=== PATIENT | female | born 1990 | race African-American/Black ===

== ENCOUNTER 2022-12-08 22:15 | Outpatient (CLI) | payer MEDICAID, SELFPAY ==
[2022-12-08] VITALS (14 sets, daily range): BP systolic 129; BP diastolic 80; PULSE 100–111; TEMP 37; O2SAT 91–100
[2022-12-08 23:00] LABS: Color, Urine Yellow (Yellow); Glucose, Dipstick Normal (Normal); Ketone-Dipstick Negative (Negative); Leukocyte Esterase-Dipstick Negative /ul (Negative); Nitrite-Dipstick Negative (Negative); Occult Blood-Urine 10 /ul (Negative); Protein-Dipstick Negative (Negative); Urine Bilirubin Dipstick Negative (Negative); Urine Clarity Clear (Clear); Urine Urobilinogen Normal (Normal)
[2022-12-08 23:21] LABS: ROM Internal Control Test YES-OK TO RESULT pt. (Internal QC); ROM Patient Test Negative (Negative); Record Kit Lot#, ROM+ K1374
[2022-12-08] MEDS: Lactated Ringers 1,000 ML 999 ML IV (23:40)
[2022-12-09] VITALS: PULSE 111; O2SAT 100
[2022-12-09 00:05] VITALS: PULSE 105; O2SAT 99
[2022-12-09 00:10] VITALS: PULSE 105; O2SAT 99
[2022-12-09 00:15] VITALS: PULSE 102; O2SAT 100
[2022-12-09 00:20] VITALS: PULSE 101; O2SAT 99
--- NOTE | 2022-12-12 15:04 | OB.TRI.NOTE ---
HPI - General General Date of Service: 12/08/22 HPI Narrative ALFREDITO FERREIRA, is a 32 F who presents with contractions PFSH PFSH Allergy/AdvReac Type Severity Reaction Status Date / Time azithromycin Allergy PT UNSURE Verified 12/08/22 22:43 OF REACTION NST FHR Rate Baby A Baseline: 150 Variability:: Moderate Accelerations:: 10 x 10 Decelerations:: None NST Reactive:: Yes Uterine Activity:: few contractions Assessment & Plan (1) : PLAN: Called by nursing patient arrives with contractions patient with care outside of [facility]. Notified by nursing signout of contractions given instruction for cervical exam and call back. Nursing called back with cervical exam noted to be no signs of labor via cervical exam. Nursing discussed triage scoring system for evaluation via physician offered my evaluation now versus repeat cervical exam in 2 hours myself, nursing states to have me check in 2 hours. Prior to the 2-hour duong patient now with resolved contractions feels no abdominal pain and no palpable contractions per nursing. Nursing states no need for further evaluation by me, given order for nursing to discharge home
== END 2022-12-09 00:55 | disposition home or self-care (01) ==
LOC: WPOUT 22:40 → WP 22:41
PROVIDERS: Visit Provider Obstetrics & Gynecology
DX: O47.9 False labor, unspecified (principal); Z3A.00 Weeks of gestation of pregnancy not specified
CPT/HCPCS: 59025; 59050; 81002; 84112; 99221; J7120; G0378

== ENCOUNTER 2022-12-17 21:03 | Emergency (ER) | payer MEDICAID, SELFPAY ==
[2022-12-17 21:04] VITALS: BP 123/82; PULSE 102; RESP 16; TEMP 36.6; O2SAT 99; BMI 31.1
--- NOTE | 2022-12-17 21:23 | EDS_ITS ---
HPI History of Present Illness Chief Complaint: Lower Extremity Injury Informant: patient Narrative Narrative: Patient presents with left knee pain. Patient was walking along the grass. She caught her toe on a small raised area. This caused her to trip. She reached out with the left leg and she felt a pop and sharp pain in her knee. She did not actually fall to the ground or impact the ground. She is able to bear weight but the knee is sore. Of note she is 6 months but is having no symptoms related to that. PFSH PFSH Medical History no medical history Allergy/AdvReac Type Severity Reaction Status Date / Time azithromycin Allergy PT UNSURE Verified 12/17/22 21:03 OF REACTION Family History no significant family his Social History Smoking Status: Light Smoker (<10/day) ROS ROS ED Constitutional Constitutional ED: Denies chills or fever(s) Cardiovascular Cardiovascular: Denies chest pain Respiratory/Chest Respiratory/Chest: Denies dyspnea Gastrointestinal Gastrointestinal: Denies abdominal pain, nausea or vomiting Genitourinary Genitourinary ED: Reports other Details: No bleeding cramping discharge or other complaints related to . ; Denies dysuria or hematuria Musculoskeletal Musculoskeletal: Reports arthralgias; Denies back pain, myalgias or neck pain Integumentary Denies Abrasions or rash Neurologic Neurologic: Denies paresthesias or weakness Hematologic/Lymphatic Hematologic/Lymphatic: Denies easy bruising EXAM Physical Exam Narrative Exam Narrative: Patient is a wake alert nontoxic pleasant and in good informant. HEENT shows no sign of trauma. Mucous membranes are moist. Neck is free range of motion Cardiorespiratory shows easy unlabored breathing and normal saturations at 99% on room air showing no hypoxia. Abdomen is gravid but nontender. Extremity no abrasions contusions. There is no swelling but she does have tenderness at the the patella as well as the lateral joint line. No effusion that I see. Her extensor mechanism is intact on exam. Knee is stable to varus valgus exam. 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 No tenderness to the other knee or either ankle. Skin shows no abrasions. Const Vital Signs: 12/17/22 21:04 Temperature 97.9 F Temperature Source Temporal Pulse Rate 102 H Respiratory Rate 16 Blood Pressure 123/82 H Blood Pressure Mean 95 Pulse Ox 99 MDM MDM MDM Narrative Medical decision making narrative: My independent interpretation the patient's three-view left knee x-ray shows no sign of acute fracture dislocation or fat fluid level. Final reading did make note of thickening of the distal quadriceps tendon that may represent injury. This finding on x-ray is consistent with pain. She has pain in the front of the knee and laterally. But it is stable. I think the Tylenol if needed is appropriate. Ice and rest. Radiography Diagnostic Testing: Clinical Impression(s) from Imaging Studies Knee X-Ray 12/17/22 21:30 IMPRESSION: Thickening of the distal quadriceps tendon may represent injury. No finding of fracture or dislocation. Electronically Signed: Chris Ritchie MD at 21:42 EDT , Discharge Plan Triage Chief Complaint: Lower Extremity Injury ED Provider: César Wolf Dx/Rx/DC Orders Clinical Impression: Strain of left knee, Strain of left quadriceps tendon, Third trimester Instructions: ED Knee Sprain Primary Care Provider: Care Physician,No Primary Referrals: Jose Martin Mix, [Med Staff - Active Staff] - 1 Week if not improving Care Physician,No Primary [Primary Care Provider] - Activity Restrictions/Additional Instructions: Use ice and rest. Disposition Disposition: Home, Self Care
--- NOTE | 2022-12-17 21:30 | RAD_ITS ---
INDICATION: Trauma -- Shield abdomen. Patient is approximately 6 months EXAMINATION/TECHNIQUE: X-RAY - LEFT XR Knee 3 Views 3 VIEWS COMPARISON: None FINDINGS: SOFT TISSUES: There is thickening of the distal quadriceps tendon. No soft tissue swelling or gas. No radiopaque foreign body. BONES/JOINTS: No acute fracture or subluxation. Medial, lateral, and patellofemoral compartment joint spaces are maintained. No sclerotic or destructive changes observed. RAD/Knee 3 Views IMPRESSION: Thickening of the distal quadriceps tendon may represent injury. No finding of fracture or dislocation. Electronically Signed: Chris Ritchie MD at 21:42 EDT ,
== END 2022-12-17 22:43 | disposition home or self-care (01) ==
PROVIDERS: Emergency Provider Emergency Medicine; Visit Provider Emergency Medicine
DX: O9A.213 Injury, poisoning and certain other consequences of external causes complicating pregnancy, third trimester (principal); S83.92XA Sprain of unspecified site of left knee, initial encounter; F17.200 Nicotine dependence, unspecified, uncomplicated; S76.112A Strain of left quadriceps muscle, fascia and tendon, initial encounter; O99.333 Smoking (tobacco) complicating pregnancy, third trimester; W01.10XA Fall on same level from slipping, tripping and stumbling with subsequent striking against unspecified object, initial encounter; Y93.01 Activity, walking, marching and hiking; Z3A.00 Weeks of gestation of pregnancy not specified
CPT/HCPCS: 73562; 99282

== ENCOUNTER 2022-12-30 13:35 | Outpatient (CLI) | payer MEDICAID, SELFPAY ==
[2022-12-30 13:44] VITALS: PULSE 103; O2SAT 98
[2022-12-30 13:46] VITALS: BP 112/64; PULSE 96
[2022-12-30 13:49] VITALS: BMI 29.8
[2022-12-30 13:58] VITALS: BP 112/64; PULSE 102; TEMP 36.8; O2SAT 97
[2022-12-30 14:38] LABS: Mucous, Urine 0 SEEN /hpf (<or=2+)
[2022-12-30 14:42] LABS: Color, Urine Yellow (Yellow); Glucose, Dipstick 250 mg/dl (Normal); Ketone-Dipstick 5 mg/dl (Negative); Leukocyte Esterase-Dipstick 100 /ul (Negative); Nitrite-Dipstick Negative (Negative); Occult Blood-Urine 25 /ul (Negative); Protein-Dipstick 30 mg/dl (Negative); Specific Gravity, Urine 1.025 (1.002-1.030); Urine Bilirubin Dipstick Negative (Negative); Urine Clarity Sl. Cloudy (Clear); Urine Urobilinogen 1 mg/dl (Normal)
[2022-12-30 14:49] LABS: Bacteria 2+ /hpf (None Seen); Red Blood Cells-Urine 0-5 SEEN /hpf (0-5); Squamous Epithelial Cells - UA 25-50 SEEN /hpf (5-10); White Blood Cells 0-5 SEEN /hpf (0-5)
[2022-12-30] MEDS: Lactated Ringers 1,000 ML 999 ML IV ×2 (14:49→16:00)
[2022-12-30] MEDS: Acetaminophen 500 MG Tablet 1000 MG PO (14:57)
[2022-12-30 15:00] LABS: Absolute Lymphocyte Count 1.68 X10^3/uL (0.83-4.51); Absolute Neutrophil Count 6.6 X10^3/uL (2.0-7.7); Basophil# 0.03 X10^3/uL; Basophil% 0.3 % (0-1); Eosinophil# 0.15 X10^3/uL; Eosinophils% 1.6 % (0-5); Hematocrit 31.3 % (37-47); Hemoglobin 10.4 g/dL (12.0-15.0); Lymphocyte # 1.68 X10^3/ul (0.83-4.51); Lymphocyte % 18.4 % (19-41); Mean Corp Hgb Conc 33.2 g/dL (32-36); Mean Corpuscular Hgb 29.3 pg (27.0-32.0); Mean Corpuscular Volume 88.2 fL (81-99); Mean Platelet Vol. 8.4 fl (6.2-12.0); Monocyte# 0.67 X10^3/uL; Monocyte% 7.3 % (0-10); NRBC Flagged by Analyzer 0 % (0-5); Neutrophil # 6.56 X10^3/uL (2.7-7.7); Neutrophil % 71.9 % (47-70); Platelet Count 273 K/mm3 (150-450); RBC Distribution Width CV 14.2 % (11.6-14.6); RBC Distribution Width SD 45.3 fl (35.1-43.9); Red Blood Count 3.55 M/mm3 (4.2-5.4); White Blood Count 9.1 K/mm3 (4.4-11.0)
[2022-12-30 15:12] LABS: Fetal Fibronectin Negative
--- NOTE | 2023-01-02 09:00 | OB.TRI.NOTE ---
HPI - General General Date of Admission: 12/30/22 Date of Service: 12/30/22 Chief Complaint: contractions HPI Narrative ALFREDITO FERREIRA, is a 32-year-old 2 para 1 who delivered approximately 8 months ago presented to labor and delivery for contractions. She is staying locally in a treatment facility for substance abuse disorder. She began having contractions. She has not been drinking much water. She arrived to labor and delivery for evaluation. Her normal physician is part of [facility]. PFSH PFSH Home Medications albuterol sulfate 90 mcg/actuation aerosol inhaler (Ventolin HFA) 2 puff inhalation Q6H PRN shortness of breath or wheezing 12/30/22 [History Last Taken Unknown] bupropion HCl 150 mg tablet,12 hr sustained-release 150 mg PO .QD depression 12/30/22 [History Last Taken 12/29/22 23:00] docusate sodium 100 mg capsule 100 mg PO DAILY 12/30/22 [History Last Taken 12/27/22 23:00] ferrous sulfate 325 mg (65 mg iron) tablet (FeroSul) 325 mg PO .QD 12/30/22 [History Last Taken 12/29/22 23:55] Allergy/AdvReac Type Severity Reaction Status Date / Time azithromycin Allergy PT UNSURE Verified 12/17/22 21:03 OF REACTION Social History Smoking Status: Light Smoker (<10/day) NST FHR Rate Baby A Baseline: 140 Variability:: Moderate Accelerations:: 10 x 10 Decelerations:: None NST Reactive:: Appropriate for gestational age and Non-Reactive FHR Category:: Category I Uterine Activity:: Irregular contractions Assessment & Plan (1) High-risk in second trimester: PLAN: Patient's contractions decreased after IV fluids. Her fibronectin was negative. Her cervix was closed. There is no active labor identified. Urinalysis was sent which showed she was significantly dehydrated. Not really suspicious for infection but sent for culture and we will review that when it is available. Encourage patient to follow-up within 1 week either at her primary [facility] [employer]'s office or if plans to be in the area for a few months to follow-up with us.
== END 2022-12-30 16:46 | disposition home or self-care (01) ==
LOC: WPOUT 13:37 → WP 13:38
PROVIDERS: Referring Provider Obstetrics & Gynecology; Visit Provider Obstetrics & Gynecology
DX: O09.892 Supervision of other high risk pregnancies, second trimester (principal); O99.332 Smoking (tobacco) complicating pregnancy, second trimester; F17.210 Nicotine dependence, cigarettes, uncomplicated; Z3A.00 Weeks of gestation of pregnancy not specified
CPT/HCPCS: 96360; 96361; 36415; 59025; 59050; 81001; 82731; 85025; 86850; 86900; 86901; 87086; 87088; 99221; J7120; G0378

== ENCOUNTER 2022-12-31 14:55 | Outpatient (CLI) | payer MEDICAID, SELFPAY ==
[2022-12-31 15:07] VITALS: BMI 29.9
[2022-12-31 15:22] VITALS: BP 97/53; PULSE 94; TEMP 36.5; O2SAT 97
[2022-12-31 16:44] VITALS: BP 129/78; PULSE 85
--- NOTE | 2022-12-31 21:14 | OB.TRI.NOTE ---
HPI - General General Date of Service: 12/31/22 HPI Narrative ALFREDITO FERREIRA, is a 32 F who presents with decreased FM. Maternal Data Information Final KIMANI: 03/[birth year]/23 Gestational age: 27&5 PFSH PFSH Home Medications albuterol sulfate 90 mcg/actuation aerosol inhaler (Ventolin HFA) 2 puff inhalation Q6H PRN shortness of breath or wheezing 12/30/22 [History Last Taken Unknown] bupropion HCl 150 mg tablet,12 hr sustained-release 150 mg PO .QD depression 12/30/22 [History Last Taken 12/29/22 23:00] docusate sodium 100 mg capsule 100 mg PO DAILY 12/30/22 [History Last Taken 12/27/22 23:00] ferrous sulfate 325 mg (65 mg iron) tablet (FeroSul) 325 mg PO .QD 12/30/22 [History Last Taken 12/29/22 23:55] Allergy/AdvReac Type Severity Reaction Status Date / Time azithromycin Allergy PT UNSURE Verified 12/17/22 21:03 OF REACTION Social History Smoking Status: Light Smoker (<10/day) NST FHR Rate Baby A Baseline: 145 Variability:: Moderate Accelerations:: 10 x 10 Decelerations:: Variable Uterine Activity:: quiet Assessment & Plan (1) Decreased movement: QUALIFIERS: Fetus number: single or unspecified fetus Trimester: second trimester Qualified Code(s): O36.8120 - Decreased movements, second trimester, not applicable or unspecified PLAN: Plan Reactive NST
== END 2022-12-31 15:55 | disposition home or self-care (01) ==
LOC: WPOUT 15:04 → WP 15:05
PROVIDERS: Referring Provider Obstetrics & Gynecology; Visit Provider Obstetrics & Gynecology
DX: O36.8120 Decreased fetal movements, second trimester, not applicable or unspecified (principal); Z3A.27 27 weeks gestation of pregnancy; O99.332 Smoking (tobacco) complicating pregnancy, second trimester; F17.200 Nicotine dependence, unspecified, uncomplicated
CPT/HCPCS: 59025; 59050; 99221; G0378